=== PATIENT | female | born 1995 | race Caucasian/White ===

== ENCOUNTER 2023-12-14 15:28 | Outpatient (CLI) | payer OTHER ==
--- NOTE | 2023-12-14 16:06 | Ultrasound Report ---
PROCEDURE: Pelvic w/Transvaginal INDICATIONS: OVARIAN CYST TECHNIQUE: Real-time scanning was performed of the pelvic organs, with image documentation. Additional endovagi nal scanning was necessary due to incomplete visualization of the adnexal and endometrial structures by transabdominal scanning. COMPARISON: None. FINDINGS: Uterus: Uterus is anteverted and normal in size at 7.6 x 2.7 x 5.0 cm. The myometrium is homogeneou s. The endometrium measures 7.3 mm in combined thickness. No uterine fibroids. Ovaries: The right ovary measures 3.7 x 2.3 x 4.6 cm, with a calculated ovarian volume of 17.7 cc. The left ovary measures 3.2 x 1.3 x 3.8 cm, with a calculated ovarian volume of 8.1 cc. Greater than 12 follicles can be seen in each ovary. No adnexal masses are seen. No cystic lesions measuring grea ter than 3 cm. Other: No pathologic free abdominal or pelvic fluid. IMPRESSION: Greater than 12 follicles can be seen in each ovary, which can be seen in the clinical setting of PCO S. Reviewed by: Enoch Garay MD on 12/14/2023 4:05 PM PST Approved by: Enoch Garay MD on 12/14/2023 4:05 PM PST Station ID: [id number]
== END 2023-12-14 15:29 | disposition home or self-care (01) ==
LOC: DI 15:28
DX: N83.209 Unspecified ovarian cyst, unspecified side (principal)

== ENCOUNTER 2024-04-01 19:40 | Emergency (ER) | payer OTHER ==
[2024-04-01 20:21] LABS: BASOPHILS # (AUTO) 0.1 10^3/uL (0.0-0.1); BASOPHILS % (AUTO) 0.9 %; EOSINOPHILS # (AUTO) 0.1 10^3/uL (0.0-0.7); EOSINOPHILS % (AUTO) 0.9 %; HCT - HEMATOCRIT 38.6 % (37.0-47.0); HGB - HEMOGLOBIN 12.4 g/dL (12.0-16.0); LYMPHOCYTES # (AUTO) 2.4 10^3/uL (1.5-3.5); LYMPHOCYTES % (AUTO) 36.8 %; MEAN CORPUSCULAR HEMOGLOBIN 27.7 pg (27.0-31.0); MEAN CORPUSCULAR HGB CONC 32.1 g/dL (32.0-36.0); MEAN CORPUSCULAR VOLUME 86.2 fL (81.0-99.0); MEAN PLATELET VOLUME 9.4 fL (7.9-10.8); MONOCYTES # (AUTO) 0.5 10^3/uL (0.0-1.0); MONOCYTES % (AUTO) 8.3 %; NEUTROPHILS # (AUTO) 3.4 10^3/uL (1.5-6.6); NEUTROPHILS % (AUTO) 52.6 %; PLT - PLATELET COUNT 256 10^3/uL (130-450); RED BLOOD COUNT 4.48 10^6/uL (4.20-5.40); RED CELL DISTRIBUTION WIDTH 12.4 % (12.0-15.0); WHITE BLOOD COUNT 6.5 x10^3/uL (4.8-10.8)
[2024-04-01 20:36] LABS: ALBUMIN 4.6 g/dL (3.2-5.5); ALBUMIN/GLOBULIN RATIO 1.8 (1.0-2.2); BILIRUBIN,TOTAL 0.6 mg/dL (0.2-1.0); CALCIUM 9.6 mg/dL (8.5-10.3); CREATININE 0.9 mg/dL (0.6-1.3); POTASSIUM 3.8 mmol/L (3.5-4.5); TOTAL PROTEIN 7.2 g/dL (6.4-8.9)
[2024-04-01 20:40] LABS: TROPONIN I HIGH SENSITIVITY 3.2 ng/L (2.3-14.8)
[2024-04-01 23:25] LABS: BILIRUBIN,URINE NEGATIVE (NEGATIVE); GLUCOSE, URINE (UA) NEGATIVE (NEGATIVE); KETONES,URINE (UA) 15 mg/dL (NEGATIVE); LEUKOCYTE ESTERASE, URINE TRACE (NEGATIVE); NITRITE,URINE NEGATIVE (NEGATIVE); OCCULT BLOOD,URINE NEGATIVE (NEGATIVE); PROTEIN,URINE NEGATIVE (NEGATIVE); UROBILINOGEN,URINE 0.2 (NORMAL) E.U./dL (NORMAL)
[2024-04-01 23:27] LABS: CLARITY,URINE CLEAR (CLEAR); HCG UR QUAL NEGATIVE
[2024-04-01 23:33] LABS: BACTERIA,URINE Few /HPF (None Seen); RBC,URINE 0-5 /HPF (0-5); SQUAMOUS EPITHELIAL CELL,UR FEW Squamous (<= Few); WBC,URINE 0-3 /HPF (0-5)
[2024-04-01 23:36] VITALS: O2SAT 99
--- NOTE | 2024-04-02 00:09 | ED Physician Documentation ---
History of Present Illness - Stated complaint Stated Complaint: LIGHTHEADED,VOMITING - Chief complaint Chief Complaint: Neuro - History obtained from History obtained from: Patient - Additonal information Additional information: Patient is a 28-year-old female, active duty [employer], presenting for evaluation of an episode of syncope this evening. Around 6 PM she was standing at a friend's house talking when she started feeling warm, ear ringing and lightheaded. She crouched down but had a 10 to 30-second episode of syncope. No witnessed seizure activity. No head injury. Patient states that when she came to she immediately threw up. She had not yet had dinner but did eat breakfast and lunch earlier today. Denies recent illness. No chest pain, shortness of air. No headache. No abdominal pain. States that her symptoms have not reoccurred and she has been feeling fine while waiting here in the emergency department to be seen. No family history of sudden cardiac in younger relatives.No recent travel. Review of Systems Constitutional: denies: Fever Cardiac: denies: Chest pain / pressure Respiratory: denies: Dyspnea GI: reports: Vomiting. denies: Abdominal Pain Neurologic: reports: Syncope. denies: Headache PD PAST MEDICAL HISTORY - Past Medical History Past Medical History: No Cardiovascular: None Respiratory: None Neuro: None Endocrine/Autoimmune: None GI: None ORGANIZATIONAL CONSULTANT: None : None HEENT: None Psych: None Musculoskeletal: None Derm: None - Past Surgical History Past Surgical History: No - Allergies Allergies/Adverse Reactions: Allergies Allergy/AdvReac Type Severity Reaction Status Date / Time No Known Drug Allergies Allergy Verified 04/01/24 20:00 - Social History Does the pt smoke?: No Smoking Status: Never smoker ETOH Use: Beer - Immunizations Immunizations are current?: Yes PD ED PE NORMAL - General General: Alert and oriented X 3, No acute distress, Well developed/nourished - HEENT HEENT: Atraumatic, PERRL, EOMI, Moist mucous membranes, Pharynx benign - Neck Neck: Supple, no meningeal sign - Cardiac Cardiac: RRR, Strong equal pulses - Respiratory Respiratory: No respiratory distress, Clear bilaterally - Abdomen Abdomen: Normal bowel sounds, Soft, Non tender, Non distended - Derm Derm: Warm and dry - Extremities Extremities: No edema - Neuro Neuro: Alert and oriented X 3, No motor deficit, Normal speech Eye Opening: Spontaneous Motor: Obeys Commands Verbal: Oriented GCS Score: 15 Results - Vitals Vitals: Vital Signs - 24 hr 04/01/24 04/01/24 04/02/24 19:53 23:30 00:35 Temperature 36.5 C Heart Rate 56 L 60 Heart Rate [ Sitting] Heart Rate [ Standing] Heart Rate [ 56 L Supine] Respiratory 16 16 Rate Blood Pressure 106/63 122/80 Blood Pressure [Sitting] Blood Pressure [Standing] Blood Pressure 117/67 [Supine] O2 Saturation 100 99 04/02/24 00:36 Temperature Heart Rate Heart Rate [ 64 Sitting] Heart Rate [ 63 Standing] Heart Rate [ 56 L Supine] Respiratory Rate Blood Pressure Blood Pressure 118/73 [Sitting] Blood Pressure 118/86 H [Standing] Blood Pressure 117/67 [Supine] O2 Saturation Oxygen O2 Source Room air - EKG (time done) 2002 EKG releavant findings:: EKG personally interpreted by author of this note. Relevant findings are: Rate 56, sinus bradycardia, no STEMI, QTc 380 - Labs Labs: Laboratory Tests 04/01/24 04/01/24 04/01/24 20:15 20:15 23:16 WBC 6.5 RBC 4.48 Hgb 12.4 Hct 38.6 MCV 86.2 MCH 27.7 MCHC 32.1 RDW 12.4 Plt Count 256 MPV 9.4 Neut # (Auto) 3.4 Lymph # (Auto) 2.4 [place] # (Auto) 0.5 Eos # (Auto) 0.1 Baso # (Auto) 0.1 Absolute Nucleated RBC 0.00 Nucleated RBC % 0.0 Sodium 135 Potassium 3.8 Chloride 102 Carbon Dioxide 27 Anion Gap 6.0 BUN 13 Creatinine 0.9 Estimated GFR (MDRD) 76 L Glucose 104 Calcium 9.6 Total Bilirubin 0.6 AST 12 ALT 8 L Alkaline Phosphatase 51 Troponin I High Sens 3.2 Total Protein 7.2 Albumin 4.6 Globulin 2.6 Albumin/Globulin Ratio 1.8 Lipase 27 Urine Color YELLOW Urine Clarity CLEAR Urine pH 6.0 Ur Specific [place] 1.015 Urine Protein NEGATIVE Urine Glucose (UA) NEGATIVE Urine Ketones 15 H Urine Occult Blood NEGATIVE Urine Nitrite NEGATIVE Urine Bilirubin NEGATIVE Urine Urobilinogen 0.2 (NORMAL) Ur Leukocyte Esterase TRACE H Urine RBC 0-5 Urine WBC 0-3 Ur Squamous Epith Cells FEW Squamous Urine Bacteria Few Ur Microscopic Review INDICATED Urine Culture Comments INDICATED Urine HCG, Qual NEGATIVE PD Medical Decision Making - ED course Complexity details: reviewed results, re-evaluated patient, d/w patient ED course: Patient is a 28-year-old female presenting for evaluation of a syncopal episode that occurred several hours ago. EKG is reviewed and nonischemic and with no arrhythmia. CBC, chemistry, troponin, urinalysis were reviewed. hCG is negative. She has been asymptomatic here. Orthostatics are negative. No risk factors for ACS, pulmonary embolism. Patient counseled on importance of close follow-up with PCM at [facility]. Also advised on concerning symptoms to return for. Departure - Departure Disposition: Home, Self Care Clinical Impression: Syncope Condition: Stable Instructions: ED Fainting Unkn Cause Follow-Up: [id number] [Provider Group] Comments: Your testing tonight is reassuring and that we do not see signs of electrolyte issues, irregular rhythms or abnormal vitals to explain your fainting spell. However you do need close follow-up with your PCM at the [facility] Regarding this episode. In the meanwhile I would not recommend you take your [place] trip that was scheduled for tomorrow morning. I would recommend you first get follow-up at the [place] [facility] prior to going on work related trips. Forms: PCP List, Activity restrictions Discharge Date/Time: 04/02/24 00:45
[2024-04-02 00:40] VITALS: BP 117/67
== END 2024-04-02 00:45 | disposition home or self-care (01) ==
LOC: ED 19:40
DX: R55 Syncope and collapse (principal); R00.1 Bradycardia, unspecified; Z32.02 Encounter for pregnancy test, result negative; Z91.85 Personal history of military service
CPT/HCPCS: 36415; 80053; 81001; 81003; 81025; 83690; 84484; 85025; 87086; 93005; 99284